=== PATIENT | male | born 1940 | race Caucasian/White ===

== ENCOUNTER 2023-01-09 12:27 | Observation (INO) ==
[2023-01-09 17:24] LABS: ABS Lymphocytes 1.1 10^3/uL (1.0-4.8); ABS Neutrophils 6.1 10^3/uL (1.5-7.6); Eosinophil % 0.1 %; Hematocrit 20.7 % (38-53); Lymphocyte % 13.6 %; Mean Corpuscular Hemoglobin 32.5 pg (27-33); Mean Corpuscular Hgb Conc 33.8 g/dL (31-36); Mean Corpuscular Volume 96.4 fL (80-97); Platelet Count 206 10^3/uL (150-450); Red Blood Count 2.15 10^6/uL (4.06-5.63); Red Cell Distribution Width 13.9 % (12-17); White Blood Count 8.3 10^3/uL (3.6-10.2)
[2023-01-09 17:48] LABS: Urine Appearance Turbid; Urine Bilirubin Negative (Negative); Urine Blood 2+ (Negative); Urine Glucose 1+(50 mg/dL) (Negative); Urine Ketones Trace (Negative); Urine Nitrite Negative (Negative); Urine Protein 2+(100 mg/dL) (Negative); Urine Urobilinogen Negative (Negative)
[2023-01-09 17:52] LABS: Hematocrit 22.3 % (38-53); Hemoglobin 7.5 g/dL (13.2-16.3)
[2023-01-09 17:52] LABS: Urine Bacteria Absent (Absent)
[2023-01-09 17:53] LABS: Urine Color Red
[2023-01-09 17:59] LABS: Albumin 3.5 g/dL (3.2-5.2); Albumin/Globulin Ratio 1.3 (1-3); Calcium 8.5 mg/dL (8.6-10.3); Creatinine, Serum 1.29 mg/dL (0.67-1.17); Globulin 2.7 g/dL (2-4); Potassium 4.3 mmol/L (3.5-5.0); Total Bilirubin 0.4 mg/dL (0.2-1.0); Total Protein 6.2 g/dL (6.4-8.9); eGFR CKD-EPI 55.4 (>60)
[2023-01-09 18:01] LABS: Activated Partial Thrombo Time 27.8 seconds (26.0-38.0); INR 1.18 (0.83-1.13)
[2023-01-09 18:04] LABS: Urine Red Blood Cell 3+(>10/hpf) (Absent); Urine White Blood Cell 3+(>20/hpf) (Absent)
[2023-01-09] MEDS ORDERED: Iodixanol (CONTRAST) 320 MG/ML 100 ML SDV IV ONE (18:35)
[2023-01-09] MEDS ORDERED: Polyethylene Glycol 3350 17 GM PACKET PO PRN (21:47)
[2023-01-09] MEDS ORDERED: Ondansetron 4 mg VIAL 2 MG/ML 2 ml VIAL IV PRN (21:47)
[2023-01-09] MEDS ORDERED: Senna TAB 8.6 mg TAB PO PRN (21:47)
[2023-01-09] MEDS ORDERED: Morphine 2 MG/ML SYRINGE IV PRN (21:51)
[2023-01-09] MEDS ORDERED: Lactated Ringers 1000 ml BAG 1,000 ML IV SCH (22:00)
[2023-01-10 00:20] LABS: Hematocrit 25.1 % (38-53); Hemoglobin 8.8 g/dL (13.2-16.3)
[2023-01-10] MEDS ORDERED: cefTRIAXone 2 gm/50 mL D5W 2 GM/50 ML BAG IV ONE (04:15)
[2023-01-10] MEDS ORDERED: Acetaminophen IV 1 GM/100ML 1,000 MG/100 ML BAG IV PRN (05:08)
[2023-01-10] MEDS ORDERED: Ondansetron 4 mg VIAL 2 MG/ML 2 ml VIAL IV PRN (05:08)
[2023-01-10] MEDS ORDERED: fentaNYL 100 mcg/2 ml 50 MCG/ML VIAL IV PRN (05:08)
[2023-01-10] MEDS ORDERED: Naloxone 0.4 mg VIAL 0.4 mg/ml 1 ml VIAL IV PRN (05:08)
[2023-01-10] MEDS ORDERED: Rocuronium 50 mg VIAL 10 mg/ml 5 ml VIAL (50 mg) ONE ×2 (05:20→06:54)
[2023-01-10] MEDS ORDERED: fentaNYL 100 mcg/2 ml 50 MCG/ML VIAL ONE (05:20)
[2023-01-10] MEDS ORDERED: Propofol 10 MG/ML 20 ML BTL ONE (05:34)
[2023-01-10] MEDS ORDERED: Lidocaine 2% PF 5 ML VIAL ONE (05:34)
[2023-01-10] MEDS ORDERED: Phenylephrine IV 10 MG/ML 1 ml VIAL ONE (05:34)
[2023-01-10] MEDS ORDERED: Dexamethasone IV 4 MG/ML VIAL 1 ml VIAL ONE (05:34)
[2023-01-10] MEDS ORDERED: Ondansetron 4 mg VIAL 2 MG/ML 2 ml VIAL ONE (05:34)
[2023-01-10] MEDS ORDERED: Furosemide 20 mg/2 ml IV VIAL ONE (06:55)
[2023-01-10] MEDS ORDERED: HYDROmorphone 1 MG/1 ML SYRINGE ONE (07:43)
[2023-01-10] MEDS: HYDROmorphone 1 MG/1 ML SYRINGE IV PRN ×2 (07:43→07:48)
[2023-01-10] MEDS ORDERED: Lidocaine 2% JELLY 6 ML Topical TOPICAL ONE (07:55)
[2023-01-10] MEDS ORDERED: Lactated Ringers 1000 ml BAG 1,000 ML IV SCH (10:00)
[2023-01-10] MEDS: Lidocaine 2% JELLY 6 ML Topical TOPICAL SCH ×3 (10:23→22:01)
[2023-01-10 11:04] LABS: ABS Lymphocytes 0.6 10^3/uL (1.0-4.8); ABS Monocytes 0.5 10^3/uL (0.0-1.1); ABS Neutrophils 9.9 10^3/uL (1.5-7.6); ABS Nucleated RBC 0.01 10^3/ul; Hematocrit 27.8 % (38-53); Hemoglobin 9.5 g/dL (13.2-16.3); Lymphocyte % 5.2 %; Mean Corpuscular Hemoglobin 32.2 pg (27-33); Mean Corpuscular Hgb Conc 34.3 g/dL (31-36); Mean Platelet Volume 7.2 fL (7.5-11.2); Platelet Count 195 10^3/uL (150-450); Red Blood Count 2.96 10^6/uL (4.06-5.63); Red Cell Distribution Width 14.5 % (12-17)
[2023-01-10 11:34] LABS: Calcium 8.1 mg/dL (8.6-10.3); Creatinine, Serum 1.08 mg/dL (0.67-1.17); eGFR CKD-EPI 68.5 (>60)
[2023-01-10] MEDS ORDERED: Acetaminophen IV 1 GM/100ML 1,000 MG/100 ML BAG IV ONE (17:15)
[2023-01-11 08:10] LABS: ABS Basophils 0.1 10^3/uL (0.0-0.1); ABS Eosinophils 0.1 10^3/uL (0.0-0.5); ABS Lymphocytes 1.6 10^3/uL (1.0-4.8); ABS Monocytes 1.2 10^3/uL (0.0-1.1); ABS Neutrophils 8.5 10^3/uL (1.5-7.6); ABS Nucleated RBC 0.01 10^3/ul; Eosinophil % 0.7 %; Hematocrit 28.1 % (38-53); Hemoglobin 9.6 g/dL (13.2-16.3); Lymphocyte % 13.7 %; Mean Corpuscular Hemoglobin 31.9 pg (27-33); Mean Corpuscular Hgb Conc 34.1 g/dL (31-36); Mean Corpuscular Volume 93.5 fL (80-97); Mean Platelet Volume 7.4 fL (7.5-11.2); Platelet Count 216 10^3/uL (150-450); Red Blood Count 3.01 10^6/uL (4.06-5.63); Red Cell Distribution Width 14.2 % (12-17); White Blood Count 11.4 10^3/uL (3.6-10.2)
[2023-01-11 08:26] LABS: Calcium 8.2 mg/dL (8.6-10.3); Creatinine, Serum 0.99 mg/dL (0.67-1.17); eGFR CKD-EPI 76.1 (>60)
[2023-01-11] MEDS: Lidocaine 2% JELLY 6 ML Topical TOPICAL SCH (08:35)
[2023-01-11 10:25] VITALS: BP 111/52
== END 2023-01-11 11:11 | disposition home or self-care (01) ==
LOC: EDHOLD 12:27 → ED 12:27 → SUATTDRO 20:51 → SSU 23:23
PROVIDERS: ADMIT Internal Medicine; ATTEND Student in an Organized Health Care Education/Training Program

== ENCOUNTER 2023-02-14 19:41 | Observation (INO) ==
[2023-02-14] MEDS ORDERED: NS 0.9% 1000 ml BAG 1,000 ML IV ONE ×2 (20:02→21:18)
[2023-02-14 20:47] LABS: ABS Basophils 0.1 10^3/uL (0.0-0.1); ABS Lymphocytes 0.7 10^3/uL (1.0-4.8); ABS Monocytes 0.8 10^3/uL (0.0-1.1); ABS Neutrophils 6.1 10^3/uL (1.5-7.6); ABS Nucleated RBC 0.01 10^3/ul; Hemoglobin 12.8 g/dL (13.2-16.3); Lymphocyte % 9.7 %; Mean Corpuscular Hemoglobin 30.6 pg (27-33); Mean Corpuscular Hgb Conc 33.7 g/dL (31-36); Mean Corpuscular Volume 90.7 fL (80-97); Mean Platelet Volume 7.8 fL (7.5-11.2); Nucleated Red Blood Cells % 0.2 %/100WBC (0.0-0.8); Platelet Count 138 10^3/uL (150-450); Red Blood Count 4.19 10^6/uL (4.06-5.63); Red Cell Distribution Width 14.9 % (12-17); White Blood Count 7.6 10^3/uL (3.6-10.2)
[2023-02-14 21:06] LABS: Albumin 4.1 g/dL (3.2-5.2); Albumin/Globulin Ratio 1.2 (1-3); Calcium 8.8 mg/dL (8.6-10.3); Creatinine, Serum 0.9 mg/dL (0.67-1.17); Globulin 3.3 g/dL (2-4); Magnesium 1.8 mg/dL (1.9-2.7); Potassium 4.2 mmol/L (3.5-5.0); Total Bilirubin 0.4 mg/dL (0.2-1.0); Total Protein 7.4 g/dL (6.4-8.9); eGFR CKD-EPI 85.3 (>60)
[2023-02-14] MEDS ORDERED: Albuterol HFA INHALER 8 gm MDI INH ONE (21:19)
[2023-02-14] MEDS ORDERED: Iohexol 350 (CONTRAST) 500 ML MDV IV ONE (21:30)
[2023-02-15 00:14] LABS: Urine Appearance Clear; Urine Bilirubin Negative (Negative); Urine Blood 2+ (Negative); Urine Color Yellow; Urine Glucose 2+(150 mg/dL) (Negative); Urine Ketones 1+ (Negative); Urine Nitrite Negative (Negative); Urine Protein Negative (Negative); Urine Specific Gravity 1.033 (1.002-1.030); Urine Urobilinogen Negative (Negative)
[2023-02-15 00:22] LABS: Urine Bacteria Absent (Absent); Urine Red Blood Cell 2+(6-10/hpf) (Absent); Urine White Blood Cell Trace(0-5/hpf) (Absent)
[2023-02-15] MEDS ORDERED: Ondansetron 4 mg VIAL 2 MG/ML 2 ml VIAL IV PRN (01:46)
[2023-02-15] MEDS ORDERED: Dextrose 50% Syringe 50 ml 25 GM/50 ML SYRINGE IV PUSH PRN (01:49)
[2023-02-15] MEDS ORDERED: Magnesium Sulfate 2 gm BAG 2 GM/50 ML BAG IVPB ONE (01:54)
[2023-02-15] MEDS ORDERED: NS 0.9% 1000 ml BAG 1,000 ML IV SCH (02:00)
[2023-02-15] MEDS: Enoxaparin 40 MG/0.4 ML SYR SUBCUT SCH (02:40)
[2023-02-15 02:47] LABS: C Reactive Protein 61.48 mg/L (<8.01)
[2023-02-15] MEDS ORDERED: Remdesivir 100 mg Vial 200 MG in NS 0.9% 250 ml 210 ML IV ONE (04:12)
[2023-02-15 04:15] LABS: Albumin 3.6 g/dL (3.2-5.2); Albumin/Globulin Ratio 1.3 (1-3); Creatinine, Serum 0.85 mg/dL (0.67-1.17); Globulin 2.7 g/dL (2-4); Potassium 3.7 mmol/L (3.5-5.0); Total Bilirubin 0.4 mg/dL (0.2-1.0); Total Protein 6.3 g/dL (6.4-8.9); eGFR CKD-EPI 86.8 (>60)
[2023-02-15] MEDS ORDERED: Furosemide 40 mg/4 ml IV VIAL IV SLOW PU ONE (04:31)
[2023-02-15] MEDS ORDERED: Potassium Chlor 20 meq TAB.ER PO ONE (05:21)
[2023-02-15] MEDS: cefTRIAXone 1 gm/50 mL D5W 1 GM/50 ML BAG IV SCH (05:29)
[2023-02-15] MEDS: Dexamethasone IV 4 MG/ML VIAL 1 ml VIAL IV SLOW PU SCH (05:45)
[2023-02-15] MEDS: DOXYcycline 100 MG in NS 0.9% 250 ml 250 ML IVPB SCH ×2 (06:08→18:08)
[2023-02-15 06:51] LABS: High Sensitivity Troponin 1 Hr 37 pg/mL (<20)
[2023-02-15] MEDS ORDERED: Furosemide 40 mg/4 ml IV VIAL IV ONE (08:42)
[2023-02-15] MEDS: Insulin GLARGINE 100 un/ml 10 ml VIAL SUBCUT SCH (10:13)
[2023-02-15 10:25] LABS: ABS Lymphocytes 0.4 10^3/uL (1.0-4.8); ABS Monocytes 0.4 10^3/uL (0.0-1.1); ABS Neutrophils 5.9 10^3/uL (1.5-7.6); ABS Nucleated RBC 0.01 10^3/ul; Hemoglobin 13.6 g/dL (13.2-16.3); Lymphocyte % 6.4 %; Mean Corpuscular Hemoglobin 30.5 pg (27-33); Mean Corpuscular Hgb Conc 33.2 g/dL (31-36); Mean Corpuscular Volume 91.8 fL (80-97); Mean Platelet Volume 8.2 fL (7.5-11.2); Nucleated Red Blood Cells % 0.2 %/100WBC (0.0-0.8); Platelet Count 146 10^3/uL (150-450); Red Blood Count 4.46 10^6/uL (4.06-5.63); Red Cell Distribution Width 15.3 % (12-17); White Blood Count 6.8 10^3/uL (3.6-10.2)
[2023-02-15] MEDS ORDERED: Sulfur Hexaflouride MICROSPHR 25 MG VIAL ONE (15:23)
[2023-02-16] MEDS: Dexamethasone IV 4 MG/ML VIAL 1 ml VIAL IV SLOW PU SCH (06:21)
[2023-02-16] MEDS: Enoxaparin 40 MG/0.4 ML SYR SUBCUT SCH (06:22)
[2023-02-16] MEDS: DOXYcycline 100 MG in NS 0.9% 250 ml 250 ML IVPB SCH ×2 (06:34→18:51)
[2023-02-16] MEDS: cefTRIAXone 1 gm/50 mL D5W 1 GM/50 ML BAG IV SCH (06:34)
[2023-02-16 06:52] LABS: Hematocrit 36.4 % (38-53); Hemoglobin 12.4 g/dL (13.2-16.3); Mean Corpuscular Hemoglobin 30.6 pg (27-33); Mean Corpuscular Hgb Conc 34.1 g/dL (31-36); Mean Corpuscular Volume 89.7 fL (80-97); Mean Platelet Volume 8.3 fL (7.5-11.2); Platelet Count 123 10^3/uL (150-450); Red Blood Count 4.06 10^6/uL (4.06-5.63); White Blood Count 7.8 10^3/uL (3.6-10.2)
[2023-02-16 06:57] LABS: INR 1.31 (0.83-1.13)
[2023-02-16 07:17] LABS: Calcium 8.4 mg/dL (8.6-10.3); Creatinine, Serum 0.86 mg/dL (0.67-1.17); Magnesium 1.9 mg/dL (1.9-2.7); Phosphorus 2.4 mg/dL (2.5-5.0); Potassium 3.6 mmol/L (3.5-5.0); eGFR CKD-EPI 86.5 (>60)
[2023-02-16 07:42] LABS: ABS Lymphocytes 0.7 10^3/uL (1.0-4.8); ABS Monocytes 0.5 10^3/uL (0.0-1.1); ABS Neutrophils 6.6 10^3/uL (1.5-7.6); Lymphocyte % 9.3 %
[2023-02-16] MEDS: Remdesivir 100 mg Vial 100 MG in NS 0.9% 250 ml 230 ML IV SCH (08:34)
[2023-02-16] MEDS: Insulin GLARGINE 100 un/ml 10 ml VIAL SUBCUT SCH (08:39)
[2023-02-16] MEDS: Ferric Gluconate IV 250 MG in NS 0.9% 250 ml 200 ML IVPB SCH (13:45)
[2023-02-16] MEDS ORDERED: Insulin GLARGINE 100 un/ml 10 ml VIAL SUBCUT ONE (21:00)
[2023-02-16] MEDS ORDERED: Droperidol 5 MG/2 ML 2 ML VIAL IV ONE (21:12)
[2023-02-17] MEDS: Enoxaparin 40 MG/0.4 ML SYR SUBCUT SCH (05:27)
[2023-02-17] MEDS: Dexamethasone IV 4 MG/ML VIAL 1 ml VIAL IV SLOW PU SCH (05:28)
[2023-02-17] MEDS: cefTRIAXone 1 gm/50 mL D5W 1 GM/50 ML BAG IV SCH (05:28)
[2023-02-17] MEDS: DOXYcycline 100 MG in NS 0.9% 250 ml 250 ML IVPB SCH ×2 (06:12→17:50)
[2023-02-17 08:13] LABS: ABS Lymphocytes 0.8 10^3/uL (1.0-4.8); ABS Monocytes 0.5 10^3/uL (0.0-1.1); ABS Neutrophils 6.2 10^3/uL (1.5-7.6); Hematocrit 34.9 % (38-53); Hemoglobin 11.8 g/dL (13.2-16.3); Lymphocyte % 10.7 %; Mean Corpuscular Hemoglobin 30.4 pg (27-33); Mean Corpuscular Hgb Conc 33.8 g/dL (31-36); Mean Platelet Volume 8.4 fL (7.5-11.2); Platelet Count 136 10^3/uL (150-450); Red Blood Count 3.88 10^6/uL (4.06-5.63); Red Cell Distribution Width 14.8 % (12-17); White Blood Count 7.6 10^3/uL (3.6-10.2)
[2023-02-17 08:14] LABS: INR 1.28 (0.83-1.13)
[2023-02-17] MEDS: Remdesivir 100 mg Vial 100 MG in NS 0.9% 250 ml 230 ML IV SCH (08:15)
[2023-02-17] MEDS: Insulin GLARGINE 100 un/ml 10 ml VIAL SUBCUT SCH (08:17)
[2023-02-17 08:30] LABS: Calcium 8.1 mg/dL (8.6-10.3); Creatinine, Serum 0.95 mg/dL (0.67-1.17); Magnesium 2.2 mg/dL (1.9-2.7); Phosphorus 2.3 mg/dL (2.5-5.0); eGFR CKD-EPI 79.9 (>60)
[2023-02-17] MEDS: Ferric Gluconate IV 250 MG in NS 0.9% 250 ml 200 ML IVPB SCH (14:08)
[2023-02-18] MEDS: cefTRIAXone 1 gm/50 mL D5W 1 GM/50 ML BAG IV SCH (04:52)
[2023-02-18] MEDS: Enoxaparin 40 MG/0.4 ML SYR SUBCUT SCH (05:30)
[2023-02-18] MEDS: Dexamethasone IV 4 MG/ML VIAL 1 ml VIAL IV SLOW PU SCH (05:30)
[2023-02-18] MEDS: DOXYcycline 100 MG in NS 0.9% 250 ml 250 ML IVPB SCH (05:31)
[2023-02-18] MEDS: Insulin GLARGINE 100 un/ml 10 ml VIAL SUBCUT SCH (08:32)
[2023-02-18 08:35] LABS: ABS Lymphocytes 0.7 10^3/uL (1.0-4.8); ABS Monocytes 0.5 10^3/uL (0.0-1.1); ABS Neutrophils 6.9 10^3/uL (1.5-7.6); Hematocrit 36.2 % (38-53); Hemoglobin 12.2 g/dL (13.2-16.3); Lymphocyte % 8.8 %; Mean Corpuscular Hemoglobin 30.4 pg (27-33); Mean Corpuscular Hgb Conc 33.7 g/dL (31-36); Mean Corpuscular Volume 90.2 fL (80-97); Mean Platelet Volume 8.2 fL (7.5-11.2); Nucleated Red Blood Cells % 0.1 %/100WBC (0.0-0.8); Platelet Count 179 10^3/uL (150-450); Red Blood Count 4.02 10^6/uL (4.06-5.63); Red Cell Distribution Width 14.9 % (12-17); White Blood Count 8.1 10^3/uL (3.6-10.2)
[2023-02-18 08:38] LABS: INR 1.22 (0.83-1.13)
[2023-02-18 08:51] LABS: Calcium 8.2 mg/dL (8.6-10.3); Creatinine, Serum 0.95 mg/dL (0.67-1.17); Potassium 3.8 mmol/L (3.5-5.0); eGFR CKD-EPI 79.9 (>60)
[2023-02-18] MEDS: Remdesivir 100 mg Vial 100 MG in NS 0.9% 250 ml 230 ML IV SCH (09:10)
[2023-02-18] MEDS: Ferric Gluconate IV 250 MG in NS 0.9% 250 ml 200 ML IVPB SCH (17:41)
[2023-02-19] MEDS: Dexamethasone IV 4 MG/ML VIAL 1 ml VIAL IV SLOW PU SCH (05:13)
[2023-02-19] MEDS: Enoxaparin 40 MG/0.4 ML SYR SUBCUT SCH (05:13)
[2023-02-19] MEDS: cefTRIAXone 1 gm/50 mL D5W 1 GM/50 ML BAG IV SCH (05:17)
[2023-02-19] MEDS ORDERED: Potassium Chlor 20 meq TAB.ER PO ONE (07:16)
[2023-02-19 08:17] LABS: ABS Lymphocytes 0.9 10^3/uL (1.0-4.8); ABS Monocytes 0.6 10^3/uL (0.0-1.1); ABS Neutrophils 7.4 10^3/uL (1.5-7.6); Hematocrit 35.7 % (38-53); Hemoglobin 12.4 g/dL (13.2-16.3); Lymphocyte % 9.8 %; Mean Corpuscular Hemoglobin 30.6 pg (27-33); Mean Corpuscular Hgb Conc 34.6 g/dL (31-36); Mean Corpuscular Volume 88.4 fL (80-97); Platelet Count 203 10^3/uL (150-450); Red Blood Count 4.04 10^6/uL (4.06-5.63); Red Cell Distribution Width 14.8 % (12-17); White Blood Count 8.9 10^3/uL (3.6-10.2)
[2023-02-19 08:21] LABS: INR 1.3 (0.83-1.13)
[2023-02-19] MEDS: Remdesivir 100 mg Vial 100 MG in NS 0.9% 250 ml 230 ML IV SCH (08:50)
[2023-02-19] MEDS: Insulin GLARGINE 100 un/ml 10 ml VIAL SUBCUT SCH (08:52)
[2023-02-19 09:01] VITALS: BP 100/64
[2023-02-19 09:26] LABS: Calcium 8.3 mg/dL (8.6-10.3); Creatinine, Serum 0.8 mg/dL (0.67-1.17); Magnesium 2.2 mg/dL (1.9-2.7); Phosphorus 2.6 mg/dL (2.5-5.0); Potassium 3.9 mmol/L (3.5-5.0); eGFR CKD-EPI 88.4 (>60)
== END 2023-02-19 13:15 | disposition home or self-care (01) ==
LOC: ED 19:41 → EDHOLD 19:41 → SUATTDRO 02-15 01:46 → MED 02-15 03:13
PROVIDERS: ADMIT Internal Medicine; ATTEND Internal Medicine